=== PATIENT | male | born 1965 | race Caucasian/White ===

== ENCOUNTER 2019-12-14 01:43 | Day surgery (SDC) | payer OTHER, SELFPAY ==
[2019-11-30 09:29] VITALS: BMI 33.0
[2019-12-14] VITALS (7 sets, daily range): BP systolic 98–139; BP diastolic 55–84; PULSE 64–90; RESP 14–26; TEMP 36.3; O2SAT 96–100
--- NOTE | ~2019-12-14 | XR_ITS ---
EXAMINATION: XR abdomen/kub 1V INDICATION: Nephrolithiasis TECHNIQUE: Supine views of the abdomen were obtained on 2 radiographs. COMPARISON: 10/24/2019 FINDINGS: A subtle 4 mm calcification is seen in the lower pole of the right kidney projecting at the level of the right L3 transverse process. No stones are identified along the expected courses of the ureters or within the bladder. The bowel gas pattern is normal. Cholecystectomy clips are noted. IMPRESSION: 1. Right nephrolithiasis. Reviewed, dictated and finalized at location A. ORY PROFESSOR IMPRESSION: 1. Right nephrolithiasis.
--- NOTE | 2019-12-14 07:06 | WPDHPUPDATE1 ---
History and Physical Update Update Date/Time: 12/14/19 07:06 History and Physical has been reviewed, including an updated exam of the patient. There are NO changes in the patient's condition. Risks, benefits, and alternatives have been discussed and questions answered. Patient agrees to proceed with procedure.
[2019-12-14] MEDS: LACTATED RINGERS 1,000 ML 30 ML IV CONT ×2 (07:10→10:05)
--- NOTE | 2019-12-14 08:23 | WPDANESEPPF ---
Anes - Initial Pre Proc Eval Procedure: Operation Date: 12/14/19 08:30 Proposed Procedures p Cystoscopy, Right Renal Extracorporeal Shock Wave Lithotripsy - Kiran Cadena MD Date/Time: 12/14/19 08:23 Surgeon: Kiran Cadena MD Pre Op Diagnosis: Bilateral Kidney Stones,Hematuria Patient Data Age: 54 Gender: M Height: 5 ft 10 in Weight: 106.1 kg Last Vital Signs Temp 97.4 F L 12/14/19 07:25 Pulse 69 12/14/19 07:25 Resp 16 12/14/19 07:25 BP 139/84 12/14/19 07:25 Pulse Ox 97 12/14/19 07:25 Allergies Allergy/AdvReac Type Severity Reaction Status Date / Time gluten Allergy Mild N/V/D Verified 12/14/19 07:04 wheat Allergy Mild n/v/d Verified 12/14/19 07:04 Home Medications Medication Instructions Recorded Confirmed Type finasteride 5 mg PO DAILY 11/30/19 12/14/19 History nebivolol [Bystolic] 5 mg PO DAILY 11/30/19 12/14/19 History pantoprazole 40 mg PO DAILY 11/30/19 12/14/19 History Patient hx anesthesia problems: none Family hx anesthesia problems: none [facility] Past Medical History Medical History (Updated 10/17/19 @ 00:00 by Rody Anaya) Celiac disease GERD (gastroesophageal reflux disease) H/O: HTN (hypertension) History of Hill's esophagus History of kidney stones Hx of epididymitis Hypercholesteremia Surgical History Surgical History (Updated 10/16/19 @ 15:42 by Arturo Mathis) History of cholecystectomy Social History Social History (Updated 12/14/19 @ 08:23 by Justice Francois MD) Smoking packs per day: 1.5 Smoking cigarettes per day: 30.0 Years smoked: 40 Smoking pack-years: 60.00 Smoking status: Current every day smoker Alcohol intake: current Gender identity (if verbalized by the patient): Male Anes - Eval Final PreProcedure Day of Procedure 12/14/19 08:23 Patient weight: obese Heart: regular rate and rhythm Lungs: clear to auscultation Airway: Mallampati scale class II Neurological: alert and oriented Last oral intake: >/= 8 hours ASA classification: III Emergent: no Anesthetic plan: proceed Anesthesia type and monitoring: general LMA and standard monitoring Informed Consent: The patient's anesthetic plan and its attendant risks and benefits were discussed with the patient/family/POA. Questions were solicited and answers provided to the satisfaction of the patient/family/POA.
[2019-12-14] MEDS: ceFAZolin 2 GM/D5W 50 ML 2 GM/50 ML BAG IVPB (08:32)
--- NOTE | 2019-12-14 09:12 | PM.PROC ---
Procedure Note - Detailed Date of procedure: 12/14/19 Pre-op diagnosis: Bilateral Kidney Stones,Hematuria Post-op diagnosis: same Procedure performed: 1. Right ESWL 2. Flexible cystoscopy. Description of procedure: The patient was brought to the operative suite where he was placed in the supine position on the Dornier lithotripter table. Flexible cystoscopy was undertaken with a 16F flexible cystoscopy. There were no urethral strictures. The prostatic uretehral estimated length was 1.5cm. There was mild obstruction of the prostatic urethra with no median lobe enlargement. The bladder mucosa was normal and there was a single, orthotopic ureteral orifice bilaterally. The patient was then repositioned in the supine position and the focal point of the lithotriptor was placed at a 5mm right lower calyceall calculus. A total of 2500 shocks were delivered at a power setting of 7. There appeared to be good fragmentation of the stone. The patient tolerated the procedure well and was taken to the recovery room in good condition. Anesthesia: GLMA Surgeon: Kiran Cadena MD Estimated blood loss (mL): 0 Drains: No Packing: No Pathology: none sent Complications: No immediate complications Condition: stable Disposition: PACU
--- NOTE | 2019-12-14 10:55 | SUR.PHASEII ---
ATTEMPTED AGAIN BUT UNABLE TO VOID. DRINKING LOTS OF FLUIDS.
== END 2019-12-14 10:50 | disposition home or self-care (01) ==
PROVIDERS: PCP Hospitalist; Visit Provider Urology
PROC: (CPT 50590; principal; 2019-12-14 08:30)
DX: N20.0 Calculus of kidney (principal); I10 Essential (primary) hypertension; E78.00 Pure hypercholesterolemia, unspecified; K90.0 Celiac disease; K21.9 Gastro-esophageal reflux disease without esophagitis; F17.210 Nicotine dependence, cigarettes, uncomplicated; E66.9 Obesity, unspecified; Z68.33 Body mass index [BMI] 33.0-33.9, adult
CPT/HCPCS: 50590; 74018; A9270; J0131; J0690; J1100; J2250; J2405; J2704; J3010; J7030; J7120

== ENCOUNTER 2019-12-31 10:56 | Outpatient (CLI) | payer OTHER, SELFPAY ==
--- NOTE | ~2019-12-31 | XR_ITS ---
XR abdomen/kub 1V 12/31/2019 11:34 Indication: Hematuria Procedure: KUB Comparison: Comparison to multiple prior studies sequentially, with oldest reviewed study dated 09/14. Findings: Bowel gas pattern is nonobstructive. Moderate colonic fecal loading. There are cholecystect amina clips. No acute osseous abnormality. Impression: 1: No acute abdominal abnormality. Reviewed, dictated and finalized at location A. ON KEEPER Impression: 1: No acute abdominal abnormality.
== END 2019-12-31 10:57 | disposition home or self-care (01) ==
LOC: ANHIMG 11:12
PROVIDERS: Visit Provider Nurse Practitioner Adult Health
DX: N20.0 Calculus of kidney (principal); R31.9 Hematuria, unspecified
CPT/HCPCS: 74018

== ENCOUNTER 2021-02-26 15:43 | Outpatient (CLI) | payer OTHER, SELFPAY | END 2021-02-26 15:44 | disposition home or self-care (01) | LOC: ANHCOVIDVC 15:43 | DX: Z23 Encounter for immunization (principal) | CPT/HCPCS: 0001A; 91300 ==

== ENCOUNTER 2021-03-19 15:40 | Outpatient (CLI) | payer OTHER, SELFPAY | END 2021-03-19 15:41 | disposition home or self-care (01) | LOC: ANHCOVIDVC 15:41 | DX: Z23 Encounter for immunization (principal) | CPT/HCPCS: 0002A; 91300 ==

== ENCOUNTER 2022-08-25 16:03 | Outpatient (CLI) | payer OTHER, SELFPAY ==
--- NOTE | ~2022-08-25 | CT_ITS ---
EXAMINATION: CT abdomen pelvis wo con DATE: 08/25/2022 16:22 INDICATION: Bilateral kidney stones. TECHNIQUE: Computed tomography (CT) of the abdomen and pelvis was performed without intravenous contr ast. Automated exposure control and iterative reconstruction technique were employed. The dose-length product was 401.19 mGy-cm. COMPARISON: CT abdomen and pelvis 10/24/2019 FINDINGS: There are portions of the lung bases are clear without pneumonia or pleural effusion. The h eart size is normal. No pericardial effusion. The liver is normal. There are changes of cholecystecto my. The spleen, pancreas, and right adrenal gland are normal. There is a 2.8 cm mass in left adrenal gland measuring low attenuation, consistent with an adenoma. There are 3 stones in right kidney measu ring up to 7 mm. There is a 1 mm stone in left kidney. There are no dilated loops of bowel. The appen dick is normal. There are no pathologically enlarged lymph nodes. There is no free intraperitoneal flu id. There is prominent fat in left inguinal canal that may be a hernia. There is mild thoracolumbar s pondylosis. There is mild chronic anterior wedging of multiple thoracic vertebral bodies. IMPRESSION: 1. Bilateral nonobstructing kidney stones. Reviewed, dictated and finalized at location A.
== END 2022-08-25 16:04 | disposition home or self-care (01) ==
LOC: ANHIMG 16:07
PROVIDERS: PCP Hospitalist; Visit Provider Urology
DX: N20.0 Calculus of kidney (principal); M47.815 Spondylosis without myelopathy or radiculopathy, thoracolumbar region; M48.54XA Collapsed vertebra, not elsewhere classified, thoracic region, initial encounter for fracture
CPT/HCPCS: 74176

== ENCOUNTER 2022-10-06 15:35 | Outpatient (CLI) | payer OTHER, SELFPAY ==
--- NOTE | 2022-10-06 15:30 | ECG_ITS ---
Measurements Intervals [place] Rate: 75 P: 53 MO: 171 QRS: 60 QRSD: 97 T: 34 QT: 377 QTc: 422 Interpretive Statements SINUS RHYTHM DELAYED PRECORDIAL R/S TRANSITION MINIMAL Q WAVES- INFERIOR LEADS BASELINE ARTIFACT- I, II, AVR BORDERLINE ECG COMPARED TO ECG 12/08/2019 14:02:36 NO SIGNIFICANT CHANGES Electronically Signed On 10-07-2022 8:17:58 FUEL CELL TEST ENGINEER by Jovani Tariq D.O.
[2022-10-06 16:14] LABS: Prothrombin Time 13.1 Seconds (11.1-14.7)
== END 2022-10-06 15:36 | disposition home or self-care (01) ==
LOC: ANHSURGERY 15:37
PROVIDERS: PCP Hospitalist; Visit Provider Urology
DX: Z01.812 Encounter for preprocedural laboratory examination (principal); Z01.810 Encounter for preprocedural cardiovascular examination; N20.0 Calculus of kidney; E78.00 Pure hypercholesterolemia, unspecified; Z86.79 Personal history of other diseases of the circulatory system; Z72.0 Tobacco use
CPT/HCPCS: 36415; 85610; 85730; 87086; 93005

== ENCOUNTER 2022-10-15 01:18 | Day surgery (SDC) | payer OTHER, SELFPAY ==
[2022-10-04 16:45] VITALS: BMI 33.0
--- NOTE | 2022-10-04 17:15 | SUR.PREOP ---
Report to the Outpatient Waiting Room, entrance under the green pavilion located off [facility], at time 0630 on date 10/15/2022. Planned Procedure Time: 0830. Time changes happen often and if your time is changed the preop area will call you the afternoon before. - You and your visitor will be asked to self-screen and do not enter if you have any COVID symptoms. - Only one visitor is requested with a max of two and NO children visitors are allowed at this time. - The patient visitor may be requested to leave or wait in car when not with patient due to distancing restrictions. - A mask is optional within the hospital. Patients may have clear liquids (water, carbonated beverages, clear teas, apple juice) until 3 hours prior to surgery with a maximum of 20 ounces. - No food from midnight until time of surgery - Infants may have breast milk until 4 hours before surgery, infant formula 6 hours prior to surgery. - Children will be allowed to drink immediately following surgery. If applicable, please bring a bottle or sippy cup to assist with drinking. Juice, water, soda, and popsicles are readily available. For infants on formula, please bring formula the day of surgery. Pacifiers are allowed. Take the following medications with a SIP of water the morning of surgery: BYSTOLIC Medications to discontinue per physician IBUPROFEN 1 WEEK-PER DR. BALLARD Date to take last dose 10/08/22 Please no make-up, nail persian, hairspray, perfume, deodorant, or body powder the day of surgery. No jewelry (including any body piercings) or valuables the day of surgery, leave them at home. Please take a shower or bath the night before, or the morning of, surgery with an antibacterial soap. Wear comfortable, loose fitting clothing. Children are encouraged to wear pajamas. - Jewelry must be removed prior to entering the operating room. Rings and piercings that are not removed may be cut off. - The hospital will not accept responsibility for valuables. - Please leave all valuables, including medications, at home the day of surgery. If you are going home after surgery, a licensed sprinkling truck driver must drive you home. - NO public transportation without another adult if you receive anesthesia. - We recommend that an adult stay with you for 24 hours following discharge. - We also recommend that you do not drive, make important decision, drink alcoholic beverages, or take any drugs that were not prescribed by your health care provider for at least 24 hours after your discharge time. For Pediatric surgeries, we recommend two adults accompany the child home. Follow any additional instructions given to you from your surgeon. If you or anyone in your household have experienced Covid symptoms in the past week, please notify your surgeon or the nurse liaison at the phone number below for possible testing. Telephone instructions given to YARELIS and asked if any additional questions and then verbalized understanding. Patient advised to call surgeon office or pre surgery nurse liaison [phone] if any additional questions.
--- NOTE | 2022-10-05 07:34 | P.HP_ITS ---
History of Present Illness History of Present Illness Consent: Risks, benefits, and alternatives have been discussed and questions answered. Patient agrees to proceed with procedure. Chief complaint: Tam Kidney Stones Narrative: Ruben Kennedy is a 57 year old male we have seen for years with BPH. On her last visit he complained of an atypical right flank pain and, somewhat surprisingly, the renal CT KUB shows several stones in his right kidney measuring up to 7 mm. After discussion of options he elected for right ESWL. He is aware of the risk including, but not limited to, residual fragments that were a require additional intervention, postoperative hematuria and perinephric hematoma Review of Systems Cardiovascular: Cardiovascular: Denies chest pain, Denies lightheadedness, Denies palpitations and Denies dyspnea Respiratory: Respiratory: Denies dyspnea Gastrointestinal: Gastrointestinal: Denies diarrhea, Denies nausea and Denies vomiting Genitourinary: Genitourinary: Denies hematuria and Denies dysuria Endocrine: Endocrine: Denies palpitations PMFSH Past Medical History Medical History (Updated 10/05/22 @ 07:35 by Kiran Cadena MD) Celiac disease GERD (gastroesophageal reflux disease) H/O: HTN (hypertension) History of Hill's esophagus History of kidney stones Hx of epididymitis Hypercholesteremia Surgical History Surgical History (Updated 10/16/19 @ 15:42 by Arturo Mathis) History of cholecystectomy Social History Social History (Updated 12/14/19 @ 08:23 by Justice Francois MD) Smoking packs per day: 1 Smoking cigarettes per day: 20.0 Years smoked: 40 Smoking pack-years: 40.00 Smoking status: Current every day smoker Tobacco type: cigarettes Alcohol intake: current Alcohol use details: Very rare- a couple every few months Living arrangements: with family Gender identity (if verbalized by the patient): Male Spiritual care concerns: No Meds Home Medications and Allergies Home Medications Medication Instructions Recorded Confirmed Type finasteride 5 mg tablet 5 mg PO DAILY 11/30/19 10/04/22 History nebivolol 5 mg tablet (Bystolic) 5 mg PO DAILY 11/30/19 10/04/22 History pantoprazole 40 mg tablet,delayed 40 mg PO DAILY 11/30/19 10/04/22 History release acetaminophen 500 mg tablet 500 mg PO Q6H PRN Pain 10/04/22 10/04/22 History (Tylenol Extra Strength) ibuprofen 100 mg tablet 200 mg PO Q6H PRN Pain 10/04/22 10/04/22 History rosuvastatin 5 mg tablet 5 mg PO DAILY 10/04/22 10/04/22 History Allergies Allergy/AdvReac Type Severity Reaction Status Date / Time gluten Allergy Mild N/V/D Verified 10/04/22 16:40 wheat Allergy Mild n/v/d Verified 10/04/22 16:40 Exam Const: General: no acute distress Resp: Effort & Inspection: normal respiratory effort GI: Inspection: non-distended GI Palp: No abdominal tenderness and No Guarding due to palpation present (GI) Auscultation: normal bowel sounds Assessment and Plan Assessment and plan (1) Bilateral kidney stones: Code(s): N20.0 - Calculus of kidney Status: Acute Assessment and Plan: * Right ESWL
[2022-10-15] VITALS (8 sets, daily range): BP systolic 106–149; BP diastolic 55–72; PULSE 59–69; RESP 16–20; TEMP 36.2; O2SAT 97–100
--- NOTE | ~2022-10-15 | XR_ITS ---
EXAMINATION: XR abdomen/kub 1V INDICATION: Urolithiasis TECHNIQUE: Supine views of the abdomen were obtained on three radiographs. COMPARISON: 08/25/2022 FINDINGS: There is a 5 mm stone of the right kidney lower pole. Bowel contents project over the kidne ys limiting sensitivity for renal stones. No stones are identified along the expected courses of the ureters or at the urinary bladder. Prostatic calcifications are noted. The bowel gas pattern is chito l. The visualized lung bases are clear. Cholecystectomy clips are noted in the right upper quadrant. IMPRESSION: 1. Right nephrolithiasis. Reviewed, dictated and finalized at location A. RT FEEDER GROUND BONE IMPRESSION: 1. Right nephrolithiasis.
--- NOTE | 2022-10-15 06:44 | WPDHPUPDATE1 ---
History and Physical Update Update Date/Time: 10/15/22 06:44 History and Physical has been reviewed, including an updated exam of the patient. There are NO changes in the patient's condition. Risks, benefits, and alternatives have been discussed and questions answered. Patient agrees to proceed with procedure.
--- NOTE | 2022-10-15 07:39 | WPDANESEPPF ---
Anes - Initial Pre Proc Eval Procedure: Operation Date: 10/15/22 08:30 Proposed Procedures p Right Extracorporeal Shock Wave Lithotripsy - Kiran Cadena MD Date/Time: 10/15/22 07:39 Surgeon: Kiran Cadena MD Pre Op Diagnosis: Tam Kidney Stones Patient Data Age: 57 Gender: M Height: 1.78 m Weight: 104.5 kg Allergies Allergy/AdvReac Type Severity Reaction Status Date / Time gluten Allergy Mild N/V/D Verified 10/04/22 16:40 wheat Allergy Mild n/v/d Verified 10/04/22 16:40 Home Medications Medication Instructions Recorded Confirmed Type finasteride 5 mg tablet 5 mg PO DAILY 11/30/19 10/04/22 History nebivolol 5 mg tablet (Bystolic) 5 mg PO DAILY 11/30/19 10/04/22 History pantoprazole 40 mg tablet,delayed 40 mg PO DAILY 11/30/19 10/04/22 History release acetaminophen 500 mg tablet 500 mg PO Q6H PRN Pain 10/04/22 10/04/22 History (Tylenol Extra Strength) ibuprofen 100 mg tablet 200 mg PO Q6H PRN Pain 10/04/22 10/04/22 History rosuvastatin 5 mg tablet 5 mg PO DAILY 10/04/22 10/04/22 History Patient hx anesthesia problems: none Family hx anesthesia problems: none Results Review: All pre-operative results and documents have been reviewed as part of the pre-operative evaluation. [facility] Past Medical History Medical History Celiac disease GERD (gastroesophageal reflux disease) H/O: HTN (hypertension) History of Hill's esophagus History of kidney stones Hx of epididymitis Hypercholesteremia Surgical History Surgical History History of cholecystectomy Social History Social History Smoking packs per day: 1 Smoking cigarettes per day: 20.0 Years smoked: 40 Smoking pack-years: 40.00 Smoking status: Current every day smoker Tobacco type: cigarettes Alcohol intake: current Alcohol use details: Very rare- a couple every few months Living arrangements: with family Gender identity (if verbalized by the patient): Male Spiritual care concerns: No Anes - Eval Final PreProcedure Day of Procedure 10/15/22 07:39 Patient weight: obese Heart: regular rate and rhythm Lungs: decreased breath sounds Airway: Mallampati scale class III Neurological: alert and oriented Last oral intake: >/= 8 hours ASA classification: III Emergent: no Anesthetic plan: proceed Anesthesia type and monitoring: general LMA and standard monitoring Results Review: All pre-operative results and documents have been reviewed as part of the pre-operative evaluation. Informed Consent: The patient's anesthetic plan and its attendant risks and benefits were discussed with the patient/family/POA. Questions were solicited and answers provided to the satisfaction of the patient/family/POA.
[2022-10-15] MEDS: LACTATED RINGERS 1,000 ML 30 ML IV CONT (07:45)
[2022-10-15] MEDS: ceFAZolin 2 GM/D5W 50 ML 2 GM/50 ML BAG IVPB (07:53)
--- NOTE | 2022-10-15 08:34 | W.PM.PROC2 ---
Procedure Note - Detailed Date of Procedure 10/15/22 Pre-op Diagnosis Tam Kidney Stones Post-op Diagnosis Same Procedure Performed Right ESWL Surgeon Kiran Cadnea MD Anesthesia General Description of Procedure The patient was brought to the operative suite where he was placed in the supine position on the Dornier lithotripsy table. The focal point of the lithotripter was placed at a pair of contiguous 5-7mm right renal calculi. A total of 2500 shocks were delivered at a power setting of 4. There appeared to be good fragmentation of the stone. The patient tolerated the procedure well and was taken to the recovery room in good condition. Drains No Packing No Pathology None sent Complications No immediate complications Condition Stable
== END 2022-10-15 10:25 | disposition home or self-care (01) ==
PROVIDERS: PCP Hospitalist; Visit Provider Urology
PROC: (CPT 50590; principal; 2022-10-15 08:30)
DX: N20.0 Calculus of kidney (principal); K90.0 Celiac disease; I10 Essential (primary) hypertension; E78.00 Pure hypercholesterolemia, unspecified; F17.210 Nicotine dependence, cigarettes, uncomplicated; E66.9 Obesity, unspecified; Z68.33 Body mass index [BMI] 33.0-33.9, adult
CPT/HCPCS: 50590; 36415; 74018; 85610; 85730; 87086; 93005; J0690; J1100; J2250; J2405; J2704; J3010; J7120

== ENCOUNTER 2022-10-25 08:21 | Outpatient (CLI) | payer OTHER, SELFPAY ==
--- NOTE | ~2022-10-25 | XR_ITS ---
EXAM: XR abdomen/kub 1V DATE: 10/25/2022 08:41 HISTORY: N20.0 - Calculus of kidney . COMPARISON: 10/15/2022. FINDINGS: Lung bases are clear. Enlarged liver. Dilated loop of small bowel in the left abdomen. The right lower pole renal calcification is partially obscured. Cholecystectomy clips. Mild degenerative change in the lumbar spine and hips. IMPRESSION: Right nephrolithiasis, likely stable but partially obscured. Small bowel ileus. Obstructi on is not excluded.. Reviewed, dictated and finalized at location K. E SHEARER IMPRESSION: Right nephrolithiasis, likely stable but partially obscured. Small bowel ileus. Obstruction is not excluded..
== END 2022-10-25 08:22 | disposition home or self-care (01) ==
PROVIDERS: PCP Hospitalist; Visit Provider Urology
DX: N20.0 Calculus of kidney (principal)
CPT/HCPCS: 74018

== ENCOUNTER 2023-04-25 08:00 | Outpatient (CLI) | payer OTHER, SELFPAY ==
--- NOTE | ~2023-04-25 | XR_ITS ---
XR abdomen/kub 1V 04/25/2023 08:21 INDICATION: Bilateral renal stones TECHNIQUE: KUB COMPARISON: 10/25/2022 FINDINGS: Bowel gas pattern is normal. There are cholecystectomy clips. There is no evidence of free air, mass, organomegaly, ascites or obstruction. No abnormal calculi are seen. The bones appear int act. IMPRESSION: 1: No acute abdominal abnormality identified. Reviewed, dictated and finalized at location []
== END 2023-04-25 08:01 | disposition home or self-care (01) ==
PROVIDERS: PCP Hospitalist; Visit Provider Urology
DX: N20.0 Calculus of kidney (principal)
CPT/HCPCS: 74018

== ENCOUNTER 2023-11-01 08:28 | Outpatient (CLI) | payer OTHER, SELFPAY ==
--- NOTE | ~2023-11-01 | XR_ITS ---
EXAMINATION: XR abdomen/kub 1V INDICATION: BPH with urinary obstruction TECHNIQUE: Supine views of the abdomen were obtained on 2 radiographs. COMPARISON: 04/25/2023 FINDINGS: There is a 5 mm stone of the right kidney lower pole. The bowel gas pattern is normal. The visualized lung bases are clear. Cholecystectomy clips are noted. IMPRESSION: 1. Right nephrolithiasis. Reviewed, dictated and finalized at location L. EL ENGINE ERECTOR IMPRESSION: 1. Right nephrolithiasis.
== END 2023-11-01 08:29 | disposition home or self-care (01) ==
LOC: ANHIMG 08:33
PROVIDERS: PCP Hospitalist; Visit Provider Urology
DX: N40.1 Benign prostatic hyperplasia with lower urinary tract symptoms (principal); N20.0 Calculus of kidney
CPT/HCPCS: 74018

== ENCOUNTER 2023-11-05 17:02 | Emergency (ER) | payer OTHER, SELFPAY ==
[2023-11-05 17:16] VITALS: BP 154/76; PULSE 84; RESP 16; TEMP 36.8; O2SAT 100
--- NOTE | 2023-11-05 17:32 | ED.URI ---
HPI - URI/Sore Throat General Chief Complaint: Upper Respiratory Infection Stated Complaint: Sinus Time Seen by Provider: 11/05/23 17:32 Source: patient, RN notes reviewed and old records reviewed Mode of arrival: ambulatory Limitations: no limitations History of Present Illness HPI Narrative: 58-year-old male presents to the [facility] with sinus congestion for 1 week. Also reports a cough, denies fevers Concern for flu and COVID Denies any chest pain, shortness of breath Onset (ago): week(s) (1) Related Data Home Medications Medication Instructions Recorded Confirmed finasteride 5 mg tablet 5 mg PO DAILY 11/30/19 10/15/22 nebivolol 5 mg tablet (Bystolic) 5 mg PO DAILY 11/30/19 10/15/22 pantoprazole 40 mg tablet,delayed 40 mg PO DAILY 11/30/19 10/15/22 release ibuprofen 100 mg tablet 200 mg PO Q6H Pain 10/04/22 10/15/22 Allergies Allergy/AdvReac Type Severity Reaction Status Date / Time gluten Allergy Mild N/V/D Verified 11/05/23 17:16 wheat Allergy Mild n/v/d Verified 11/05/23 17:16 Review of Systems Review of Systems: All systems reviewed & are unremarkable except as noted in HPI and below Constitutional: Constitutional: Reports no additional constitutional complaints Eyes: Eyes: Reports no additional eye complaints ENT: Reports as per HPI, Reports nasal congestion and Reports sinus pressure Cardiovascular: Cardiovascular: Reports no additional cardiovascular complaints, Denies chest pain and Denies dyspnea Respiratory: Respiratory: Reports no additional respiratory complaints, Denies chest congestion, Denies cough and Denies dyspnea Gastrointestinal: Gastrointestinal: Reports no additional gastrointestinal complaints, Denies abdominal pain, Denies nausea and Denies vomiting Musculoskeletal: Musculoskeletal: Reports no additional musculoskeletal complaints Integumentary/Breasts: Skin/Breast: Reports system reviewed and no additional complaints, except as docu Neurologic: Reports system reviewed and no additional complaints, except as documented Psychiatric: Psychiatric: Reports no additional psychiatric complaints Allergic/Immunologic: Allergic/Immunologic: Reports no additional allergic/immunologic complaints PMFSH Past Medical History Medical History Celiac disease GERD (gastroesophageal reflux disease) H/O: HTN (hypertension) History of Hill's esophagus History of kidney stones Hx of epididymitis Hypercholesteremia Surgical History Surgical History History of cholecystectomy Social History Social History Smoking packs per day: 1 Smoking cigarettes per day: 20.0 Years smoked: 40 Smoking pack-years: 40.00 Smoking status: Current every day smoker Tobacco type: cigarettes Alcohol intake: current Alcohol use details: Very rare- a couple every few months Living arrangements: with family Gender identity (if verbalized by the patient): Male Spiritual care concerns: No Comments At the time of my signature, I reviewed and agree with the nursing past medical, surgical, social, and family history. There is no relevant family history pertinent to the patient complaint. Exam Const: General: cooperative, healthy appearing, comfortable, no acute distress, well developed, alert and well nourished Nutritional Appearance: well nourished Orientation/consciousness: patient oriented x3 Limitations: no limitations HENMT: Head: normal to inspection Ears: hearing grossly normal bilaterally and external ears normal Face/Nose/Sinus: Normal external nose present, Normal nares present, Normal nasal mucous membranes and turbinates present, normal facial exam and face symmetric Face and sinus: normal facial exam and face symmetric Mouth: Yes Normal oral and palatal mucosa present, Yes lip normal and Yes moist mucous membrane
== END 2023-11-05 17:48 | disposition home or self-care (01) ==
PROVIDERS: Emergency Provider Nurse Practitioner; PCP Hospitalist
DX: U07.1 COVID-19 (principal); F17.210 Nicotine dependence, cigarettes, uncomplicated; K21.9 Gastro-esophageal reflux disease without esophagitis; I10 Essential (primary) hypertension; K22.70 Barrett's esophagus without dysplasia; E78.00 Pure hypercholesterolemia, unspecified
CPT/HCPCS: 87426; 87804; 99213; C9803; G0463

== ENCOUNTER 2024-05-21 06:45 | Outpatient (CLI) | payer OTHER, SELFPAY ==
--- NOTE | ~2024-05-21 | XR_ITS ---
XR abdomen/kub 1V Ordering provider: Kiran Cadena MD History: . BILATERAL KIDNEY STONES F/U . Comparison: November 01, 2023 FINDINGS: BOWEL: Nonobstructive bowel gas pattern. ORGANOMEGALY: None. SIGNIFICANT PATHOLOGIC CALCIFICATIONS: Stone is seen in the right kidney lower pole. OTHER: No free air is seen under the diaphragm. Degenerative changes of the spine. IMPRESSION: NO ACUTE ABDOMINAL FINDINGS. Right kidney stone. Reviewed, dictated and finalized at location A.
== END 2024-05-21 06:46 | disposition home or self-care (01) ==
PROVIDERS: PCP Hospitalist; Visit Provider Urology
DX: N20.0 Calculus of kidney (principal)
CPT/HCPCS: 74018

== ENCOUNTER 2025-03-09 14:05 | Emergency (ER) | payer OTHER, SELFPAY ==
--- NOTE | ~2025-03-09 | XR_ITS ---
XR hand LT min 3V Ordering provider: Edna Stephens APRN History: . finger laceration . Comparison: None. FINDINGS: BONES: No acute fracture or dislocation. JOINT SPACES: Narrowing of the proximal and distal interphalangeal joints. 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 SOFT TISSUES: Unremarkable. IMPRESSION: No acute osseous abnormality left hand. Reviewed, dictated and finalized at location A.
--- OUTSIDE RECORDS SUMMARY | 2025-03-09 14:08 | XMS_ITS | Referral Summary ---
Author Organization [facility] Address [address] [place] [address] Care Team Providers Care Insurance Account Representative Name Role Phone No, Physician Primary Care Provider [phone] Allergies No known active allergies Medications finasteride (PROSCAR) 5 mg tablet TK 1 T PO D 12/23/2019 Active BYSTOLIC 5 mg tablet TK ONE T PO QD. 12/18/[address] (PROTONIX) 40 mg EC tablet TK 1 T PO D 11/18/2019 Active rosuvastatin (CRESTOR) 5 mg tablet TK 1 T PO HS 12/14/2019 Active meloxicam (MOBIC) 15 mg tablet Take 1 tablet (15 mg total) by mouth daily 06/27/2023 Active Active Problems Problem Noted Date Diagnosed Date Essential hypertension 08/26/2023 Hyperlipidemia 08/26/2023 Hill's esophagus without dysplasia 11/24/2022 Overview (08/26/2023): Added automatically from request for surgery [id number] Gastroesophageal reflux disease 11/24/2022 Overview (08/26/2023): Added automatically from request for surgery [id number] Immunizations Immunization Administration Dates Next Due Tdap 10/17/2019 Social History Tobacco Use Types Packs/Day Years Used Date Smoking Tobacco: Every Day Personal Safety Answer Date Recorded Getting School Help Needed Not on file 12/11 Sex and Gender Information Value Date Recorded Sex Assigned at Not on file Legal 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 Gender Identity Not on file Sexual Orientation Not on file Last Filed Vital Signs Vital Sign Reading Time Taken Comments Blood Pressure 122/74 12/31/2019 8:45 AM MIDDLE SCHOOL BAND TEACHER Pulse 53 12/31/2019 8:45 AM MIDDLE SCHOOL BAND TEACHER Temperature 36 C (96.8 F) 12/31/2019 8:45 AM MIDDLE SCHOOL BAND TEACHER Respiratory Rate - - Oxygen Saturation 94% 12/31/2019 8:45 AM MIDDLE SCHOOL BAND TEACHER Inhaled Oxygen Concentration - - Weight 110.6 kg (243 lb 14.4 oz) 08/26/2023 7:56 AM CDT Height 177 cm (5' 9.69 ) 08/26/2023 7:56 AM CDT Body Mass Index 35.31 08/26/2023 7:56 AM CDT Plan of Treatment Not on [place] [address] [facility] CHO[facility]US [facility] H[facility]PPO Address: [facility] [address] [place] [address] [facility]US [facility] H[facility] Address: [address] [place] [address] [place] [address] [facility] CHOICE PLUS [facility] H[facility]O Address: [place] [address] [place] [address] [employer] Care Teams Insurance Account Representative Relationship Specialty Start Date End Date No, Physician PCP - General 12/24/19
--- OUTSIDE RECORDS SUMMARY | 2025-03-09 14:08 | XMS_ITS | Clinical Summary ---
Author Organization [facility] Address [address] [place] [phone] Care Team Providers Care Technical Programs Manager Name Role Phone No, Physician Primary Care Provider [phone] Allergies No known active allergies Medications finasteride [...] (08/26/2023): Added automatically from request for surgery [id number] Gastroesophageal reflux disease 11/24/2022 Overview (08/26/2023): Added automatically from request for surgery [id number] Immunizations Immunization Administration Dates Next Due Tdap 10/17/2019 Surgical History Surgery Date Site/Laterality Comments FOREIGN BODY REMOVAL 01/04/2020 Left removal foreign body left hand (wood) Social History Tobacco Use Types Packs/Day Years Used Date Smoking Tobacco: Every Day Personal Safety Answer Date Recorded Getting School Help Needed Not on file 12/11 Sex and Gender Information Value Date Recorded Sex Assigned at Not on file Legal 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 Gender Identity Not on file Sexual Orientation Not on file Obstetrics History Last Filed Vital Signs Vital Sign Reading Time Taken Comments Blood Pressure 122/74 12/31/2019 8:45 AM ACADEMIC SUPPORT COORDINATOR Pulse 53 12/31/2019 8:45 AM ACADEMIC SUPPORT COORDINATOR Temperature 36 C (96.8 F) 12/31/2019 8:45 AM ACADEMIC SUPPORT COORDINATOR Respiratory Rate - - Oxygen Saturation 94% 12/31/2019 8:45 AM ACADEMIC SUPPORT COORDINATOR Inhaled Oxygen Concentration - - Weight 110.6 kg (243 lb 14.4 oz) 08/26/2023 7:56 AM CDT Height 177 cm (5' 9.69 ) 08/26/2023 7:56 AM CDT Body Mass Index 35.31 08/26/2023 7:56 AM CDT Plan of Treatment Health Maintenance Due Date Last Done Comments Colon Cancer Screening-Colonoscopy 1965 Depression Screening 1965 Hepatitis C Screening 1965 Prostate Cancer Screening-PSA 1965 Hepatitis B Screening 02/23/1982 Regular Well Visit/Exam 18-64 02/23/1982 Pneumococcal vaccine <65 (1 of 2 - PCV) 02/23/1983 Zoster Vaccine (1 of 2) 02/23/2014 Influenza Vaccine (Season Ended) 2025 DTaP/Tdap/Td Vaccine (2 - Td or Tdap) 10/17/202902/[address] [place] [address] [facility] CHOICE PLUS [place] [address] CHOICE PLUS [place] [id number] [place] [address] [employer] Care Teams Technical Programs Manager Relationship Specialty Start Date End Date No, Physician PCP - General 12/24/19
--- OUTSIDE RECORDS SUMMARY | 2025-03-09 14:08 | XMS_ITS | Clinical Summary ---
Author Organization [facility] Address [facility] [place] [address] Care Team Providers Care Skills Instructor Name Role Phone Otilio Rockwell MD Unavailable [phone] Otilio Rockwell MD Primary Care Provider [phone] Allergies No known active allergies Medications Blood Pressure Monitor Kit Take blood pressure daily and report findings to office nures. DX: hypertension 1 kit 07/21/20 21 Active sildenafil (VIAGRA) 100 MG tablet Take 1 tablet (100 mg total) by mouth as needed. 11/10/20 23 Active pantoprazole EC (PROTONIX) 40 MG tabletIndicati ons:Gastroesop hageal reflux disease, unspecified whether esophagitis present Take 1 tablet (40 mg total) by mouth daily. 90 tablet 3 04/18/20 24 025 Active rosuvastatin (CRESTOR) 5 MG tablet Take 1 tablet (5 mg total) by mouth nightly at bedtime. 90 tablet 1 11/05/20 24 Active buPROPion SR (WELLBUTRIN SR) 150 MG 12 hr tablet Take 1 tablet (150 mg total) by mouth daily. 30 tablet 3 12/11/19 25 Active nebivolol (BYSTOLIC) 5 MG tablet TAKE 1 TABLET BY MOUTH DAILY 90 tablet 1 02/21/20 25 Active nebivolol (BYSTOLIC) 5 MG tablet TAKE 1 TABLET(5 MG) BY MOUTH DAILY 90 tablet 1 08/03/20 24 025 Discontinued Active Problems Problem Noted Date Diagnosed Date History of colon polyps 02/16/2023 Overview (02/16/2023): Added automatically from request for surgery [id number] Gastroesophageal reflux dise ase, unspecified whether esophagitis present 11/24/2022 Overview (11/24/2022): Added automatically from request for surgery [id number] Hill's esophagus without dysplasia 11/24/2022 Overview (11/24/2022): Added automatically from request for surgery [id number] Screen for colon cancer 11/24/2022 Overview (11/24/2022): Added automatically from request for surgery [id number] History of Hill's esophagus 07/11/2020 Overview (07/11/2020): Added automatically from request for surgery [id number] Essential hypertension Hyperlipidemia Encounters Date Type Department Care Team Description 01/17/2025 8:35 AM CUSTOMER SUCCESS ASSOCIATE - 01/17/2025 11:59 PM CUSTOMER SUCCESS ASSOCIATE [place] [address] Otilio Rockwell MD Discharge Disposition: Home or Self Care (Routine Discharge) 01/17/2025 Telephone [facility] [address] [address] Shilpa Clement, SUPERVISOR [employer] Results 01/17/2025 Travel 12/11/2024 9:00 AM CUSTOMER SUCCESS ASSOCIATE Office Visit [facility] [address] [address] Otilio Rockwell MD Hypertension; Lipids 12/10/2024 3:22 PM CUSTOMER SUCCESS ASSOCIATE - 12/10/2024 11:59 PM CUSTOMER SUCCESS ASSOCIATE [place] [address] Otilio Rockwell MD Discharge Disposition: Home or Self Care (Routine Discharge) 12/10/2024 Travel 12/10/2024 Telephone [facility] [address] [place] [address] Otilio Rockwell MD Lab Order from Last 3 Months Immunizations Immunization Administration Dates Next Due Tdap (Boostrix) 10/17/2019 Family History Medical History Relation Comments Hypertension Father Hypertension Mother No family history of premature coronary artery d isease. Other Relation Status Comments Father Mother Other Social History Tobacco Use Types Packs/Day Years Used Date Smoking Tobacco: Every Day Cigarettes Smokeless Tobacco: Never Tobacco Cessation:Ready to Q uit: Not Asked; Counseling Given: Not Answered Comments:MD to advise Alcohol Use Standard Drinks/Week Comments Yes 0 (1 standard drink = 0.6 oz pur e alcohol) little PHQ-2 Answer Date Recorded Patient Health Questionnaire-2 Score 0 04/18/2024 Sex and Gender Information Value Date Recorded Sex Assigned at Male 12/08/2024 9:49 AM CUSTOMER SUCCESS ASSOCIATE Legal Sex Male 12:14 AM CDT Gender Identity Not on file Sexual Orientation Not on file 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 on file Not on file Last Filed Vital Signs Vital Sign Reading Time Taken Comments Blood Pressure 120/70 12/11/2024 8:53 AM CUSTOMER SUCCESS ASSOCIATE Pulse 73 12/11/2024 8:53 AM CUSTOMER SUCCESS ASSOCIATE Temperature 36.9 C (98.5 F) 04/18/2024 12:58 PM CDT Respiratory Rate 18 04/18/2024 12:58 PM CDT Oxygen Saturation 94% 04/18/2024 12:58 PM CDT Inhaled Oxygen Concentration - - Weight 108.9 kg (240 lb) 12/11/2024 8:53 AM CUSTOMER SUCCESS ASSOCIATE Height 177.8 cm (5' 10 ) 12/11/2024 8:53 AM CUSTOMER SUCCESS ASSOCIATE Body Mass Index 34.44 12/11/2024 8:53 AM CUSTOMER SUCCESS ASSOCIATE Plan of Treatment Upcoming Encounters Date Type Department Care Team (Late st Contact Info) Description 12/17/2025 9:00 AM CUSTOMER SUCCESS ASSOCIATE Office Visit [facility], [address] [address] Otilio Rockwell MD [facility]. [address] [address] Health Maintenance Due Date Last Done Comments EGD-Hill's Surveillance 1965 Annual Physical 02/23/1967 Hepatitis C 02/23/1982 Pneumococcal Vaccine: 50+ Years (1 of 2 - PCV) 02/23/1983 Zoster Vaccines (1 of 2) 02/23/2014 COVID-19 Vaccine (3 - 2023-2 5 season) 2024 03/19/2021, 02/26/2021 PHQ-2 (Physician Newell) 11/14/2024 04/18/2024 DTaP, Tdap and Td Vaccines ( 2 - Td or Tdap) 10/17/2029 10/17/2019 Colorectal Cancer Screening Colonoscopy (10 Years) 07/14/2033 07/14/2023 RSV Immunization or 60+ Years (1 - 1-dose 75+ series) 02/23/2039 Meningococcal B Vaccine Aged Out No l onger eligible based on patient's age to complete this topic Meningococcal Vaccine Aged Out No meaghan nicole eligible based on patient's age to complete this topic RSV Immunizations Under 20 Months Aged Out No longer eligible b ased on patient's age to complete this topic Procedures Procedure Name Priority Date/Time Associated Diagnosis Comments CBC, AUTO, NO DIFF Routine 01/17/2025 8: 52 AM CUSTOMER SUCCESS ASSOCIATE Leukocytosis, unspecified type CBC, AUTO, NO DIFF Routine 12/10/2024 3: 26 PM CUSTOMER SUCCESS ASSOCIATE Dyslipidemia COMPREHENSIVE METABOLIC PANEL Routine 12/10/2024 3:26 PM CUSTOMER SUCCESS ASSOCIATE Dyslipidemia CK (CPK) Routine 12/10/2024 3:26 PM CUSTOMER SUCCESS ASSOCIATE Dyslipidemia LIPID PANEL Routine 12/10/2024 3:26 PM CUSTOMER SUCCESS ASSOCIATE Dyslipidemia from Last 3 Months Results * (ABNORMAL) CBC, AUTO, NO DIFF (01/17/2025 8:52 AM CUSTOMER SUCCESS ASSOCIATE) Only the most recent of2 resultswithin the time period is included. WBC 13.29(H) 4.5 - 11.0 x10'3/uL 01/17/2025 9:13 AM [facility] RBC 5.79 4.70 - 6.10 x10'6/uL 01/17/2025 9:13 AM [facility] HGB 17.3 14.0 - 18.0 G/DL 01/17/2025 9:13 AM [facility] HCT 51.8 43.0 - 54.0 % 01/17/2025 9:13 AM [facility] MCV 89.5 80.0 - 94.0 FL 01/17/2025 9:13 AM [facility] MCH 29.9 27.0 - 31.0 PG 01/17/2025 9:13 AM [facility] MCHC 33.4 32.0 - 36.0 G/DL 01/17/2025 9:13 AM [facility] RDW 12.9 11.5 - 14.5 % 01/17/2025 9:13 AM [facility] PLT 312 130 - 400 x10'3/uL 01/17/2025 9:13 AM [facility] MPV 9.5 9.3 - 12.2 FL 01/17/2025 9:13 AM [facility] 01/17/2025 8:52 AM CUSTOMER SUCCESS ASSOCIATE us Otilio Rockwell MD LABORATORY Final Resul t [facility] [address] [place] [address], * COMPREHENSIVE METABOLIC PANEL (12/10/2024 3:26 PM CUSTOMER SUCCESS ASSOCIATE) [facility] GLUCOSE 81 70 - 99 MG/DL 12/10/2024 4:01 PM [facility] BUN 11 7 - 18 MG/DL 12/10/2024 4:01 PM [facility] CREATININE S/P/B 0.85 0.7 - 1.3 MG/DL 12/10/2024 4:01 PM [facility] SODIUM S/P/B 138 136 - 145 MMOL/L 12/10/2024 4:01 PM [facility] POTASSIUM S/P/B 4.0 3.5 - 5.1 MMOL/L 12/10/2024 4:01 PM [facility] CHLORIDE S/P/B 106 97 - 115 MMOL/L 12/10/2024 4:01 PM [facility] CO2 27.1 21 - 32 MMOL/L 12/10/2024 4:01 PM [facility] CALCIUM S/P/B 9.8 8.5 - 10.1 MG/DL 12/10/2024 4:01 PM [facility] BILIRUBIN TOTAL S/P/B 0.7 0.2 - 1.2 MG/DL 12/10/2024 4:01 PM [facility] Comment: THIS ASSAY IS NOT RECOMMENDED FOR PATIENTS UNDERGOING TREATMENT WITH ELTROMBOPAG DUE TO THE POTENTIAL FOR FALSELY ELEVATED RESULTS. TOTAL PROTEIN S/P/B 7.6 6.4 - 8.2 G/DL 12/10/2024 4:01 PM [facility] ALBUMIN S/P/B 4.0 3.4 - 5.0 G/DL 12/10/2024 4:01 PM [facility] AST 28 15 - 37 U/L 12/10/2024 4:01 PM [facility] ALT 34 16 - 60 U/L 12/10/2024 4:01 PM [facility] ALKALINE PHOSPHATASE S/P/B 85 50 - 136 U/L 12/10/2024 4:01 PM [facility] ANION GAP 4.9 2 - 10 MMOL/L 12/10/2024 4:01 PM [facility] BUN CREATININE RATIO 12.9 6 - 26 12/10/2024 4:01 PM [facility] A/G RATIO 1.1 1.0 - 2.0 RATIO 12/10/2024 4:01 PM [facility] GFR ESTIMATE >90 >90 ML/MIN/1.7 3 M2 12/10/2024 4:01 PM [facility] Comment: NOTE: eGFR is not calculated for patients <18 years of age or gender unknown. This is an estimated GFR calculation using the new CKD EPI creatinine equation without race and so does not require a correction factor for race. This estimated GFR should not be used for calculating drug doses. 12/10/2024 3:26 PM CUSTOMER SUCCESS ASSOCIATE us Otilio Rockwell MD LABORATORY Final Resul t [facility] [address] [place] [address], [place] [phone] * (ABNORMAL) LIPID PANEL (12/10/2024 3:26 PM CUSTOMER SUCCESS ASSOCIATE) CHOLESTEROL 159 <200 MG/DL 12/10/2024 4:01 PM [facility] TRIGLYCERIDES 192(H) <150 MG/DL 12/10/2024 4:01 PM [facility] HDL 38(L) >40.0 MG/DL 12/10/2024 4:01 PM [facility] LDL (CALCULATED) 83 <100 MG/DL 12/10/2024 4:01 PM [facility] NON HDL CHOLESTEROL 121 <130 MG/DL 12/10/2024 4:01 PM [facility] CHOL/HDL RATIO 4.2 0.0 - 4.5 12/10/2024 4:01 PM [facility] VLDL CALCULATION 38 5 - 55 MG/DL 12/10/2024 4:01 PM [facility] LIPID INTERPRETATION 12/10/2024 4:01 PM [facility] Comment: [facility] REPORT RECOMMENDATIONS: ADULT CHILD LOW RISK: CHOLESTEROL <200 <170 TRIGLYCERIDE <150 --- HDL >=60 --- LDL <100 <110 BORDERLINE: CHOLESTEROL 200-239 170-199 TRIGLYCERIDE 150-199 --- HDL 40-59 --- LDL 100-159 110-129 HIGH RISK: CHOLESTEROL >=240 >=200 TRIGLYCERIDE >=200 --- HDL <40 --- LDL >=160 >=130 12/10/2024 3:26 PM CUSTOMER SUCCESS ASSOCIATE Otilio Rockwell MD LABORATORY Final Resul t Performing Organization Address [facility]/ZIP Co de Phone Number [facility] [address] [place] [address], [place] [phone] * (ABNORMAL) CK (CPK) (12/10/2024 3:26 PM CUSTOMER SUCCESS ASSOCIATE) CPK 360(H) 35 - 232 U/L 12/10/2024 4:01 PM CUSTOMER SUCCESS ASSOCIATE [facility] 12/10/2024 3:26 PM CUSTOMER SUCCESS ASSOCIATE Otilio Rockwell MD LABORATORY Final Resul t Performing Organization Address [facility] Co de Phone Number [facility] [address] [place] [address], [place] [phone] from Last [address] [place] [address] [facility] [facility] [place] [address] Care Teams Skills Instructor Relationship Specialty Start Date End Date Otilio Rockwell MD [facility]. [address] [place] [address] PCP - General CARDIOVASCULAR DISEASE 12/08/24 Otilio Rockwell MD [facility]. [address] [place] [address] Crossing Guard CARDIOVASCULAR DISEASE 04/14/16
--- OUTSIDE RECORDS SUMMARY | 2025-03-09 14:08 | XMS_ITS | Encounter Summary ---
Author Organization [facility] Address [address] [place] [address] Care Team Providers Care Waiter/Waitress Third Class Name Role Phone Otilio Rockwell MD Unavailable [phone] Morro Reyes MD Primary Care Provider [phone] None, Provider Primary Care Provider Unavaila ble Otilio Rockwell MD Primary Care Provider [phone] Encounter Details Date Type Department Care Team (Late st Contact Info) Description 12/31/2019 Abstract [facility] [address] [place] [address] Manny Diaz MA Social History Tobacco Use Types Packs/Day Years Used Date Smoking Tobacco: Every Day Cigarettes Smokeless Tobacco: Never Alcohol Use Standard Drinks/Week Comments Yes 0 (1 standard drink = 0.6 oz pur e alcohol) little Sex and Gender Information Value Date Recorded Sex Assigned at Male 12/08/2024 9:49 AM HEALTH ADVOCATE Legal Sex Male 12:14 AM CDT Gender Identity Not on file Sexual Orientation Not on file 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 [address] [place], [place] [address] documented as of this encounter Procedures Procedure Name Priority Date/Time Associated Diagnosis Comments BASIC METABOLIC PANEL Routine 12/31/2019 documented in this encounter Results * (ABNORMAL) BASIC METABOLIC PANEL (12/31/2019) SODIUM S/P/B 134 135 - 45 POTASSIUM S/P/B 4.2 3.3 - 5.1 CO2 23 22 - 32 CHLORIDE S/P/B 100 96 - 108 BUN 15 8 - 25 CREATININE S/P/B 0.6(A) 0.7 - 1.3 EGFR NON-AFR. AMER. >90 <=90 12/31/2019 us Doc [facility] LABORATORY Final Result documented in this encounter Visit Diagnoses Not on filedocumented in this encounter Care Teams Waiter/Waitress Third Class Relationship Specialty Start Date End Date Morro Reyes MD [address] [facility] [address] [place] [address] PCP - General FAMILY PRACTICE 05/23/19 07/14/20 None, MD Tania PCP - General 07/03/21 12/07/24 Otilio Rockwell MD [address] [place], [place] [address] PCP - General CARDIOVASCULAR DISEASE 12/08/24 Otilio Rockwell MD [address] [place], [place] [address] [employer] CARDIOVASCULAR DISEASE 04/14/16 documented as of this encounter
[2025-03-09 14:13] VITALS: BP 175/85; PULSE 74; RESP 16; TEMP 36.9; O2SAT 97
--- NOTE | 2025-03-09 14:16 | ED.WOUNDLAC ---
HPI - Wound/Laceration General Chief Complaint: Wound/Laceration <Edna Stephens APRN - Last Filed: 03/09/25 14:19> Stated Complaint: finger laceration <Edna Stephens APRN - Last Filed: 03/09/25 14:19> Time Seen by Provider: 03/09/25 14:15 <Edna Stephens APRN - Last Filed: 03/09/25 14:19> Focused HPI: Patient is a 60-year-old male who presents to the ER with a laceration to the 2nd digit on his left hand. He reports that he smashed his finger in a grill lid. Patient endorses full range of motion in the joint. He has a pressure dressing on his finger at the time of examination which is controlling his bleeding. Patient endorses a history of high blood pressure and GERD. Unsure when his last tetanus shot was, so he is in agreement receiving one today. GENERAL: Well-appearing, well-nourished, and in no acute distress. HEAD: Normocephalic, atraumatic. CHEST: Clear to auscultation. ?No respiratory distress. HEART: Regular rate and rhythm.? NEURO: ?Alert and oriented x3. Patient screened in triage and initial orders placed.? ?Additional care and disposition to be based upon?diagnostic testing and treatment. <Edna Stephens APRN - Last Filed: 03/09/25 14:19> History of Present Illness HPI narrative: Agree with the HPI above. Patient is not sure about his tetanus status. <Damaso Small MD - Last Filed: 03/09/25 16:21> Related Data Home Medications: Home Medications ?Medication ?Instructions ?Recorded ?Confirmed ?Last Taken ?Type finasteride 5 mg tablet 5 mg PO DAILY 11/30/19 10/15/22 10/04/22 History nebivolol 5 mg tablet (Bystolic) 5 mg PO DAILY 11/30/19 10/15/22 10/04/22 History pantoprazole 40 mg tablet,delayed 40 mg PO DAILY 11/30/19 10/15/22 10/04/22 History release ibuprofen 100 mg tablet 200 mg PO Q6H Pain 10/04/22 10/15/22 10/03/22 20:00 History <Edna Stephens APRN - Last Filed: 03/09/25 14:19> Allergies/Adverse Reactions: Allergies Allergy/AdvReac Type Severity Reaction Status Date / Time gluten Allergy Mild N/V/D Verified 11/05/23 17:16 wheat Allergy Mild n/v/d Verified 11/05/23 17:16 <Edna Stephens APRN - Last Filed: 03/09/25 14:19> Review of Systems Review of Systems: As reviewed above <Damaso Small MD - Last Filed: 03/09/25 16:21> PMFSH Past Medical History Medical History: Medical History History of kidney stones Hx of epididymitis History of Hill's esophagus GERD (gastroesophageal reflux disease) Celiac disease Hypercholesteremia H/O: HTN (hypertension) <Edna Stephens APRN - Last Filed: 03/09/25 14:19> Surgical History Surgical History: Surgical History History of cholecystectomy <Edna Stephens APRN - Last Filed: 03/09/25 14:19> Social History Social History: Social History Smoking packs per day: 1 Smoking cigarettes per day: 20.0 Years smoked: 40 Smoking pack-years: 40.00 Smoking status: Current every day smoker Tobacco type: cigarettes Alcohol intake: current Alcohol use details: Very rare- a couple every few months Living arrangements: with family Gender identity (if verbalized by the patient): Male Spiritual care concerns: No <Edna Stephens APRN - Last Filed: 03/09/25 14:19> Exam Narrative: GENERAL: [Well-appearing, well-nourished, and in no acute distress.] HEAD: [Normocephalic, atraumatic.] EYES: [PERRLA and EOMI.] ENT: Nares clear, no rhinorrhea or epistaxis. Mucous membranes moist. NECK: Supple. CHEST: [Clear to auscultation. No respiratory distress.] HEART: [Regular rate and rhythm]. No murmur heard. [Normal peripheral pulses.] ABDOMEN: [Soft, nondistended], [nontender], [No rigidity or guarding] EXTREMITIES: Normal range of motion. [No edema.] Flexion and extension intact at the MCP PIP and the IP joint of all digits on the left hand. There is a small 1.5 cm linear laceration is very superficial involving the dorsal lateral aspect of the left index finger distally. No joint involvement. No exposed musculature. No bleeding. SKIN: Warm, dry, no rash. NEURO: [No focal deficits]. Alert and oriented [x3.] PSYCH: [Normal mood and affect.] <Damaso Small MD - Last Filed: 03/09/25 16:21> Course Vital Signs Vital signs: Vital Signs Temperature 36.9 C 03/09/25 14:13 Pulse Rate 74 03/09/25 14:13 Respiratory Rate 16 03/09/25 14:13 Blood Pressure 175/85 H 03/09/25 14:13 Pulse Oximetry 97 03/09/25 14:13 Oxygen Delivery Room Air 03/09/25 14:13 Temperature 36.9 C 03/09/25 14:13 Pulse Rate 74 03/09/25 14:13 Respiratory Rate 16 03/09/25 14:13 Blood Pressure 175/85 H 03/09/25 14:13 Pulse Oximetry 97 03/09/25 14:13 Oxygen Delivery Room Air 03/09/25 14:13 <Edna Stephens APRN - Last Filed: 03/09/25 14:19> Vital Signs Temperature 36.9 C 03/09/25 14:13 Pulse Rate 74 03/09/25 14:13 Respiratory Rate 16 03/09/25 14:13 Blood Pressure 175/85 H 03/09/25 14:13 Pulse Oximetry 97 03/09/25 14:13 Oxygen Delivery Room Air 03/09/25 14:13 Temperature 36.9 C 03/09/25 14:13 Pulse Rate 74 03/09/25 14:13 Respiratory Rate 16 03/09/25 14:13 Blood Pressure 175/85 H 03/09/25 14:13 Pulse Oximetry 97 03/09/25 14:13 Oxygen Delivery Room Air 03/09/25 14:13 <Damaso Small MD - Last Filed: 03/09/25 16:21> Procedures Laceration Laceration 1: Date: 03/09/25 <Damaso Small MD - Last Filed: 03/09/25 16:21> Time: 16:21 <Damaso Small MD - Last Filed: 03/09/25 16:21> Site: hand <Damaso Small MD - Last Filed: 03/09/25 16:21> Side (If applicable): left <Damaso Small MD - Last Filed: 03/09/25 16:21> Size (cm): 1.5 <Damaso Small MD - Last Filed: 03/09/25 16:21> Description: linear <Damaso Small MD - Last Filed: 03/09/25 16:21> Depth: simple, single layer <Damaso Small MD - Last Filed: 03/09/25 16:21> Local Anesthetic: none <Damaso Small MD - Last Filed: 03/09/25 16:21> Pre-repair: wound explored, irrigated extensively and deep structures intact <Damaso Small MD - Last Filed: 03/09/25 16:21> ====== Skin Level ======: Skin layer closed with: dermabond and steri strips <Damaso Small MD - Last Filed: 03/09/25 16:21> Technique: simple, interrupted <Damaso Small MD - Last Filed: 03/09/25 16:21> ====== Subcutaneous Layer ======: ====== Muscle Layer ======: ====== Tendon Layer ======: Dressing: Non adherent dressing applied. <Damaso Small MD - Last Filed: 03/09/25 16:21> MDM - Wound/Laceration MDM Narrative Medical decision making narrative: 60-year-old male presenting with laceration to the left 2nd digit. Bleeding controlled. Tetanus will be updated here in the emergency department. Full flexion and extension at each joint line, no bleeding. Very superficial wound does not need complex repair. Irrigation and cleaning solutions were used to thoroughly explored the wound, Steri-Strips and surgical glue were used to close the wound and non adherent dressing applied over top. Patient was given wound care instructions and return precautions and he was safe for discharge home. <Damaso Small MD - Last Filed: 03/09/25 16:21> Discharge Plan Discharge Clinical Impression: Finger laceration <Edna Stephens APRN - Last Filed: 03/09/25 14:19> Patient Disposition: Home <Edna Stephens APRN - Last Filed: 03/09/25 14:19> Condition: Stable <Edna Stephens APRN - Last Filed: 03/09/25 14:19> Instructions: Antibiotic Form, Laceration (ED), Skin Adhesive Care (ED), Skin Adhesive Strips (ED) <Edna Stephens APRN - Last Filed: 03/09/25 14:19> Additional Instructions: Your x-ray shows no broken bones. We have applied surgical glue to close your wound. This will fall off naturally in the next 3-5 days. Keep the area dry for the next 24 hours and covered for protection. Return with any new or worsening concerns or signs of infection. Take Tylenol and ibuprofen for any aches or pains. <Edna Stephens APRN - Last Filed: 03/09/25 14:19> Patient Language: Surinamese <Edna Stephens APRN - Last Filed: 03/09/25 14:19> Prescriptions: No Action pantoprazole 40 mg tablet,delayed release (DR/EC) 40 mg PO DAILY finasteride 5 mg tablet 5 mg PO DAILY nebivolol [Bystolic] 5 mg tablet 5 mg PO DAILY ibuprofen 100 mg Tablet 200 mg PO Q6H <Edna Stephens APRN - Last Filed: 03/09/25 14:19> Follow-up/Referrals: Moiz,Otilio Rojas MD [Primary Care Provider] - <Edna Stephens APRN - Last Filed: 03/09/25 14:19> Time of Disposition: 16:19 <Edna Stephens APRN - Last Filed: 03/09/25 14:19> 16:19 <Damaso Small MD - Last Filed: 03/09/25 16:21>
[2025-03-09] MEDS: TETANUS,DIPHTHERIA,AC PERTUSSIS ADULT (0.5 ML) BOOSTRIX IM (16:38)
--- OUTSIDE RECORDS SUMMARY | 2025-03-09 16:43 | XMS_ITS | Clinical Summary ---
Author Organization [facility] Address [facility] [place] [address] Care Team Providers Care Space Control Supervisor Name Role Phone Otilio Rockwell MD Unavailable [phone] Otilio Rockwell MD Primary Care Provider [phone] Allergies No known active allergies Medications Blood [...] (02/16/2023): Added automatically from request for surgery [id number] Gastroesophageal reflux dise ase, unspecified whether esophagitis present 11/24/2022 Overview (11/24/2022): Added automatically from request for surgery [id number] Hill's esophagus without dysplasia 11/24/2022 Overview (11/24/2022): Added automatically from request for surgery [id number] Screen for colon cancer 11/24/2022 Overview (11/24/2022): Added automatically from request for surgery [id number] History of Hill's esophagus 07/11/2020 Overview (07/11/2020): Added automatically from request for surgery [id number] Essential hypertension Hyperlipidemia Encounters Date Type Department Care Team Description 01/17/2025 8:35 AM WATER METER READER - 01/17/2025 11:59 PM WATER METER READ[place] [address] Otilio Rockwell MD Discharge Disposition: Home or Self Care (Routine Discharge) 01/17/2025 Telephone [facility] [address] [address] Shilpa Clement, EXAMINING OFFICER Results 01/17/2025 Travel 12/11/2024 9:00 AM WATER METER READER Office Visit [facility] [address] [address] Otilio Rockwell MD Hypertension; Lipids 12/10/2024 3:22 PM WATER METER READER - 12/10/2024 11:59 PM WATER METER READER [place] [address] Otilio Rockwell MD Discharge Disposition: Home or Self Care (Routine Discharge) 12/10/2024 Travel 12/10/2024 Telephone [facility] [address] [place] [address] Otilio Rockwell MD Lab Order from Last [...] Sex Assigned at Male 12/08/2024 9:49 AM WATER METER READER Legal Sex Male 12:14 AM CDT Gender Identity Not on file Sexual Orientation Not on file 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 on file Not on file Last Filed Vital Signs Vital Sign Reading Time Taken Comments Blood Pressure 120/70 12/11/2024 8:53 AM WATER METER READER Pulse 73 12/11/2024 8:53 AM WATER METER READER Temperature 36.9 C (98.5 F) 04/18/2024 12:58 PM CDT Respiratory Rate 18 04/18/2024 12:58 PM CDT Oxygen Saturation 94% 04/18/2024 12:58 PM CDT Inhaled Oxygen Concentration - - Weight 108.9 kg (240 lb) 12/11/2024 8:53 AM WATER METER READER Height 177.8 cm (5' 10 ) 12/11/2024 8:53 AM WATER METER READER Body Mass Index 34.44 12/11/2024 8:53 AM WATER METER READER Plan of Treatment Upcoming Encounters Date Type Department Care Team (Late st Contact Info) Description 12/17/2025 9:00 AM WATER METER READER [facility] Visit [facility], [address] [address] Otilio Rockwell MD [facility]. [address] [address] Health Maintenance Due Date Last Done Comments EGD-Hill's Surveillance 1965 Annual Physical 02/23/1967 Hepatitis C 02/23/1982 Pneumococcal Vaccine: 50+ Years (1 of 2 - PCV) 02/23/1983 Zoster Vaccines (1 of 2) 02/23/2014 COVID-19 Vaccine (3 - 2023-2 5 season) 2024 03/19/2021, 02/26/2021 PHQ-2 (Physician [place]) 11/14/2024 04/18/2024 DTaP, Tdap and Td Vaccines [...] NO DIFF Routine 01/17/2025 8: 52 AM WATER METER READER Leukocytosis, unspecified type CBC, AUTO, NO DIFF Routine 12/10/2024 3: 26 PM WATER METER READER Dyslipidemia COMPREHENSIVE METABOLIC PANEL Routine 12/10/2024 3:26 PM WATER METER READER Dyslipidemia CK (CPK) Routine 12/10/2024 3:26 PM WATER METER READER Dyslipidemia LIPID PANEL Routine 12/10/2024 3:26 PM WATER METER READER Dyslipidemia from Last 3 Months Results * (ABNORMAL) CBC, AUTO, NO DIFF (01/17/2025 8:52 AM WATER METER READER) Only the most recent of2 resultswithin the time period is included. WBC 13.29(H) 4.5 - 11.0 x10'3/uL 01/17/2025 9:13 AM [facility] RBC 5.79 4.70 - 6.10 x10'6/uL 01/17/2025 9:13 AM [facility] HGB 17.3 14.0 - 18.0 G/DL 01/17/2025 9:13 AM [facility] HCT 51.8 43.0 - 54.0 % 01/17/2025 9:13 AM [facility] MCV 89.5 80.0 - 94.0 FL 01/17/2025 9:13 AM [facility] MCH 29.9 27.0 - 31.0 PG 01/17/2025 9:13 AM [facility] MCHC 33.4 32.0 - 36.0 G/DL 01/17/2025 9:13 AM [facility] RDW 12.9 11.5 - 14.5 % 01/17/2025 9:13 AM [facility] PLT 312 130 - 400 x10'3/uL 01/17/2025 9:13 AM [facility] MPV 9.5 9.3 - 12.2 FL 01/17/2025 9:13 AM [facility] 01/17/2025 8:52 AM WATER METER READER us Otilio Rockwell MD LABORATORY Final Resul t [facility] [address] [place] [address], * COMPREHENSIVE METABOLIC PANEL (12/10/2024 3:26 PM WATER METER READER) [facility] GLUCOSE 81 70 - 99 MG/DL 12/10/2024 4:01 PM [facility] BUN 11 7 - 18 MG/DL 12/10/2024 4:01 PM [facility] CREATININE S/P/B 0.85 0.7 - 1.3 MG/DL 12/10/2024 4:01 PM [facility] SODIUM S/P/B 138 136 - 145 MMOL/L 12/10/2024 4:01 PM [facility] POTASSIUM S/P/B 4.0 3.5 - 5.1 MMOL/L 12/10/2024 4:01 PM [facility] CHLORIDE S/P/B 106 97 - 115 MMOL/L 12/10/2024 4:01 PM [facility] CO2 27.1 21 - 32 MMOL/L 12/10/2024 4:01 PM [facility] CALCIUM S/P/B 9.8 8.5 - 10.1 MG/DL 12/10/2024 4:01 PM [facility] BILIRUBIN TOTAL S/P/B 0.7 0.2 - 1.2 MG/DL 12/10/2024 4:01 PM [facility] Comment: THIS ASSAY IS NOT RECOMMENDED FOR PATIENTS UNDERGOING TREATMENT WITH ELTROMBOPAG DUE TO THE POTENTIAL FOR FALSELY ELEVATED RESULTS. TOTAL PROTEIN S/P/B 7.6 6.4 - 8.2 G/DL 12/10/2024 4:01 PM [facility] ALBUMIN S/P/B 4.0 3.4 - 5.0 G/DL 12/10/2024 4:01 PM [facility] AST 28 15 - 37 U/L 12/10/2024 4:01 PM [facility] ALT 34 16 - 60 U/L 12/10/2024 4:01 PM [facility] ALKALINE PHOSPHATASE S/P/B 85 50 - 136 U/L 12/10/2024 4:01 PM [facility] ANION GAP 4.9 2 - 10 MMOL/L 12/10/2024 4:01 PM [facility] BUN CREATININE RATIO 12.9 6 - 26 12/10/2024 4:01 PM [facility] A/G RATIO 1.1 1.0 - 2.0 RATIO 12/10/2024 4:01 PM [facility] GFR ESTIMATE >90 >90 ML/MIN/1.7 3 M2 12/10/2024 4:01 PM [facility] Comment: NOTE: eGFR is not calculated for patients <18 years of age or gender unknown. This is an estimated GFR calculation using the new CKD EPI creatinine equation without race and so does not require a correction factor for race. This estimated GFR should not be used for calculating drug doses. 12/10/2024 3:26 PM WATER METER READER us Otilio Rockwell MD LABORATORY Final Resul t [facility] [address] [place] [address], [place] [phone] * (ABNORMAL) LIPID PANEL (12/10/2024 3:26 PM WATER METER READER) CHOLESTEROL 159 <200 MG/DL 12/10/2024 4:01 PM [facility] TRIGLYCERIDES 192(H) <150 MG/DL 12/10/2024 4:01 PM [facility] HDL 38(L) >40.0 MG/DL 12/10/2024 4:01 PM [facility] LDL (CALCULATED) 83 <100 MG/DL 12/10/2024 4:01 PM [facility] NON HDL CHOLESTEROL 121 <130 MG/DL 12/10/2024 4:01 PM [facility] CHOL/HDL RATIO 4.2 0.0 - 4.5 12/10/2024 4:01 PM [facility] VLDL CALCULATION 38 5 - 55 MG/DL 12/10/2024 4:01 PM [facility] LIPID INTERPRETATION 12/10/2024 4:01 PM [facility] Comment: NIH CONCENSUS REPORT RECOMMENDATIONS: ADULT CHILD LOW RISK: CHOLESTEROL <200 <170 TRIGLYCERIDE <150 --- HDL >=60 --- LDL <100 <110 BORDERLINE: CHOLESTEROL 200-239 170-199 TRIGLYCERIDE 150-199 --- HDL 40-59 --- LDL 100-159 110-129 HIGH RISK: CHOLESTEROL >=240 >=200 TRIGLYCERIDE >=200 --- HDL <40 --- LDL >=160 >=130 12/10/2024 3:26 PM WATER METER READER Otilio Rockwell MD LABORATORY Final Resul t Performing Organization Address City/[facility]/ZIP Co de Phone Number [facility] [address] [place] [address], [place] [phone] * (ABNORMAL) CK (CPK) (12/10/2024 3:26 PM WATER METER READER) CPK 360(H) 35 - 232 U/L 12/10/2024 4:01 PM WATER METER READER [facility] 12/10/2024 3:26 PM WATER METER READER Otilio Rockwell MD LABORATORY Final Resul t Performing Organization Address City/[facility] Co de Phone Number [facility] [address] [place] [address], [place] [phone] from Last [address] [place] [address] [place] [address] Care Teams Space Control Supervisor Relationship Specialty Start Date End Date Otilio Rockwell MD [facility]. [address] [place] [address] PCP - General CARDIOVASCULAR DISEASE 12/08/24 Otilio Rockwell MD [facility]. [address] [place] [address] Bloomery Electrical Installer CARDIOVASCULAR DISEASE 04/14/16
--- OUTSIDE RECORDS SUMMARY | 2025-03-09 16:43 | XMS_ITS | Referral Summary ---
Author Organization [facility] Address [address] [place] [phone] Care Team Providers Care Coffee Sommelier Name Role Phone No, Physician Primary Care Provider [phone] Allergies No known active allergies Medications finasteride [...] (08/26/2023): Added automatically from request for surgery [id number] Gastroesophageal reflux disease 11/24/2022 Overview (08/26/2023): Added automatically from request for surgery [id number] Immunizations Immunization Administration Dates Next Due Tdap 10/17/2019 Social History Tobacco Use Types Packs/Day Years Used Date Smoking Tobacco: Every Day Personal Safety Answer Date Recorded Getting School Help Needed Not on file 12/11 Sex and Gender Information Value Date Recorded Sex Assigned at Not on file Legal Sex Male 1:53 AM CRAYON PAINTER Gender Identity Not on file Sexual Orientation Not on file Last Filed Vital Signs Vital Sign Reading Time Taken Comments Blood Pressure 122/74 12/31/2019 8:45 AM CRAYON PAINTER Pulse 53 12/31/2019 8:45 AM CRAYON PAINTER Temperature 36 C (96.8 F) 12/31/2019 8:45 AM CRAYON PAINTER Respiratory Rate - - Oxygen Saturation 94% 12/31/2019 8:45 AM CRAYON PAINTER Inhaled Oxygen Concentration - - Weight 110.6 kg (243 lb 14.4 oz) 08/26/2023 7:56 AM CDT Height 177 cm (5' 9.69 ) 08/26/2023 7:56 AM CDT Body Mass Index 35.31 08/26/2023 7:56 AM CDT Plan of Treatment Not on [place] [address] [facility] CHOICE PLUS [facility] H[facility]/PPO Address: [facility] [address] [place] [address] [facility] CHOICE PLUS [facility] HMO/PPO Address: [address] [place] [address] [place] [address] [facility] CHOICE PLUS [facility] H[facility]/PPO Address: [place] [address] [place] [address] [employer] Care Teams Coffee Sommelier Relationship Specialty Start Date End Date No, Physician PCP - General 12/24/19
--- OUTSIDE RECORDS SUMMARY | 2025-03-09 16:43 | XMS_ITS | Encounter Summary ---
Author Organization [facility] Address [address] [place] [address] Care Team Providers Care Water Chaser Name Role Phone Otilio Rockwell MD Unavailable [phone] Morro Reyes MD Primary Care Provider [phone] None, Provider Primary Care Provider Unavaila ble Otilio Rockwell MD Primary Care Provider [phone] Encounter Details Date Type Department Care Team (Late st Contact Info) Description 12/31/2019 Abstract [facility] [address] [place] [address] Manny Diaz MA Social History Tobacco Use Types Packs/Day Years Used Date Smoking Tobacco: Every Day Cigarettes Smokeless Tobacco: Never Alcohol Use Standard Drinks/Week Comments Yes 0 (1 standard drink = 0.6 oz pur e alcohol) little Sex and Gender Information Value Date Recorded Sex Assigned at Male 12/08/2024 9:49 AM CLAM DIGGER Legal Sex Male 12:14 AM CDT Gender Identity Not on file Sexual Orientation Not on file 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 [address] [place], [place] [address] documented as of this encounter Procedures Procedure [...] on filedocumented in this encounter Care Teams Water Chaser Relationship Specialty Start Date End Date Morro Reyes MD [address] [facility] [address] [place] [address] PCP - General FAMILY PRACTICE 05/23/19 07/14/20 None, MD Tania PCP - General 07/03/21 12/07/24 Otilio Rockwell MD [address] [place], [place] [address] PCP - General CARDIOVASCULAR DISEASE 12/08/24 Otilio Rockwell MD [address] [place], [place] [address] Lei Complex Manager CARDIOVASCULAR DISEASE 04/14/16 documented as of this encounter
--- OUTSIDE RECORDS SUMMARY | 2025-03-09 16:43 | XMS_ITS | Clinical Summary ---
Author Organization [facility] Address [address] [place] [phone] Care Team Providers Care Destination Sign Repairer Name Role Phone No, Physician Primary Care Provider [phone] Allergies No known active allergies Medications finasteride [...] (08/26/2023): Added automatically from request for surgery [id number] Gastroesophageal reflux disease 11/24/2022 Overview (08/26/2023): Added automatically from request for surgery [id number] Immunizations Immunization Administration Dates Next Due Tdap [...] on file Legal Sex Male 1:53 AM NUCLEAR OPERATIONS SPECIALIST Gender Identity Not on file Sexual Orientation Not on file Obstetrics History Last Filed Vital Signs Vital Sign Reading Time Taken Comments Blood Pressure 122/74 12/31/2019 8:45 AM NUCLEAR OPERATIONS SPECIALIST Pulse 53 12/31/2019 8:45 AM NUCLEAR OPERATIONS SPECIALIST Temperature 36 C (96.8 F) 12/31/2019 8:45 AM NUCLEAR OPERATIONS SPECIALIST Respiratory Rate - - Oxygen Saturation 94% 12/31/2019 8:45 AM NUCLEAR OPERATIONS SPECIALIST Inhaled Oxygen Concentration - - Weight 110.6 [...] - Td or Tdap) 10/17/202902/[address] [place] [address] [facility] CHOICE PLUS [facility] HMO/PPO Address: [address] [address] [place] [address] [facility] H[facility]/PPO Address: [address] [address] [place] [address] CHOICE PLUS [facility] HMO/PPO Address: [address] [address] [place] [id number] [place] [address] [employer] Care Teams Destination Sign Repairer Relationship Specialty Start Date End Date No, Physician PCP - General 12/24/19
== END 2025-03-09 16:59 | disposition home or self-care (01) ==
LOC: ANHED 16:41
PROVIDERS: Emergency Provider Student in an Organized Health Care Education/Training Program; PCP Hospitalist
DX: S61.211A Laceration without foreign body of left index finger without damage to nail, initial encounter (principal); Z23 Encounter for immunization; I10 Essential (primary) hypertension; E78.00 Pure hypercholesterolemia, unspecified; K22.70 Barrett's esophagus without dysplasia; K90.0 Celiac disease; K21.9 Gastro-esophageal reflux disease without esophagitis; F17.210 Nicotine dependence, cigarettes, uncomplicated; Z87.442 Personal history of urinary calculi; Z90.49 Acquired absence of other specified parts of digestive tract; W23.0XXA Caught, crushed, jammed, or pinched between moving objects, initial encounter
CPT/HCPCS: 12001; 73130; 90471; 90715; 99283

== ENCOUNTER 2025-04-27 10:50 | Outpatient (CLI) | payer OTHER, SELFPAY ==
--- NOTE | ~2025-04-27 | XR_ITS ---
[id number] 04/27/2025 11:13 Indication: Radiculopathy Procedure: 3 view cervical spine Comparison: No prior studies for comparison. Findings: Straightening of cervical lordosis. There is disc narrowing at C5-6 and C6-7. There is dege nerative anterolisthesis at C4-5. There is multilevel uncinate and facet hypertrophy of the mid cervi stefani spine. No prevertebral soft tissue abnormality. Odontoid process is normal. Lateral masses normal ly aligned. Lung apices are unremarkable. Impression: 1: Moderate cervical spondylosis. Reviewed, dictated and finalized at location B. Impression: 1: Moderate cervical spondylosis.
--- OUTSIDE RECORDS SUMMARY | 2025-04-27 10:53 | XMS_ITS | Clinical Summary ---
Author Organization [facility] Address [address] [place] [address] Care Team Providers Care Head Of Quality Name Role Phone No, Physician Primary Care Provider [phone] Allergies No known active allergies Medications finasteride [...] (08/26/2023): Added automatically from request for surgery [id number] Gastroesophageal reflux disease 11/24/2022 Overview (08/26/2023): Added automatically from request for surgery [id number] Immunizations Immunization Administration Dates Next Due Tdap [...] on file Legal Sex Male 1:53 AM TOBACCO STRIPPING MACHINE OPERATOR Gender Identity Not on file Sexual Orientation Not on file Obstetrics History Last Filed Vital Signs Vital Sign Reading Time Taken Comments Blood Pressure 122/74 12/31/2019 8:45 AM TOBACCO STRIPPING MACHINE OPERATOR Pulse 53 12/31/2019 8:45 AM TOBACCO STRIPPING MACHINE OPERATOR Temperature 36 C (96.8 F) 12/31/2019 8:45 AM TOBACCO STRIPPING MACHINE OPERATOR Respiratory Rate - - Oxygen Saturation 94% 12/31/2019 8:45 AM TOBACCO STRIPPING MACHINE OPERATOR Inhaled Oxygen Concentration - - Weight 110.6 kg (243 lb 14.4 oz) 08/26/2023 7:56 AM CDT Height 177 cm (5' 9.69) 08/26/2023 7:56 AM CDT Body Mass Index [...] - Td or Tdap) 10/17/202902/[address] [place] [address] [facility] CHOICE PLUS [facility] HMO/PPO Address: [address] [address] [place] [address] [facility] HMO/PPO Address: [address] [address] [place] [address] CHOICE PLUS [facility] HMO/PPO Address: [address] [address] [place] [id number] [place] [address] [employer] Care Teams Head Of Quality Relationship Specialty Start Date End Date No, Physician PCP - General 12/24/19
--- OUTSIDE RECORDS SUMMARY | 2025-04-27 10:53 | XMS_ITS | Referral Summary ---
Author Organization [facility] Address [address] [place] [id number] Care Team Providers Care Piano Stringer Name Role Phone No, Physician Primary Care Provider [phone] Allergies No known active allergies Medications finasteride [...] (08/26/2023): Added automatically from request for surgery [id number] Gastroesophageal reflux disease 11/24/2022 Overview (08/26/2023): Added automatically from request for surgery [id number] Immunizations Immunization Administration Dates Next Due Tdap 10/17/2019 Social History Tobacco Use Types Packs/Day Years Used Date Smoking Tobacco: Every Day Personal Safety Answer Date Recorded Getting School Help Needed Not on file 12/11 Sex and Gender Information Value Date Recorded Sex Assigned at Not on file Legal Sex Male 1:53 AM TOUR CONSULTANT Gender Identity Not on file Sexual Orientation Not on file Last Filed Vital Signs Vital Sign Reading Time Taken Comments Blood Pressure 122/74 12/31/2019 8:45 AM TOUR CONSULTANT Pulse 53 12/31/2019 8:45 AM TOUR CONSULTANT Temperature 36 C (96.8 F) 12/31/2019 8:45 AM TOUR CONSULTANT Respiratory Rate - - Oxygen Saturation 94% 12/31/2019 8:45 AM TOUR CONSULTANT Inhaled Oxygen Concentration - - Weight 110.6 kg (243 lb 14.4 oz) 08/26/2023 7:56 AM CDT Height 177 cm (5' 9.69) 08/26/2023 7:56 AM CDT Body Mass Index 35.31 08/26/2023 7:56 AM CDT Plan of Treatment Not on [place] [address] [facility] CHOICE PLUS [facility] [place] [address] [facility] [address] [employer] Care Teams Piano Stringer Relationship Specialty Start Date End Date No, Physician PCP - General 12/24/19
[2025-04-27 11:41] LABS: Basophils Absolute Auto 0.1 K/mm3 (0.0-0.1); Basophils Percent Auto 0.7 % (0.2-1.2); Eosinophils Absolute Auto 0.2 K/mm3 (0-0.3); Eosinophils Percent Auto 1.2 % (0-4.4); Hematocrit 52.3 % (42.0-52.0); Hemoglobin 17.3 g/dL (14.0-18.0); Immature Granulocyte Absolute 0.04 K/mm3 (0.00-0.031); Immature Granulocyte Percent A 0.3 % (0-0.5); Lymphocytes Absolute Auto 3.24 K/mm3 (0.9-3.2); Mean Corpuscular HGB Conc 33.1 g/dl (32-36); Mean Corpuscular Hemoglobin 30.2 pg (26-34); Mean Corpuscular Volume 91.4 fl (80-100); Mean Platelet Volume 8.9 fl (7.4-10.4); Monocytes Absolute Auto 0.8 K/mm3 (0.1-0.6); Monocytes Percent Auto 6.9 % (2.6-8.5); Neutrophils Absolute Auto 7.7 K/mm3 (1.3-6.7); Neutrophils Percent Auto 63.9 % (45.5-73.1); Platelet Count Result 299 k/mm3 (150-375); Red Blood Count 5.72 M/mm3 (4.6-6.20); Red Cell Distribution Width 13.2 % (11.5-14.5)
[2025-04-27 11:52] LABS: Alanine Aminotransferase 31 U/L (6-50); Albumin Level 4.4 g/dL (3.5-5.1); Alkaline Phosphatase 68 U/L (38-126); Anion Gap 9 mmol/L (4-12); Aspartate Amino Transferase 38 U/L (17-59); Bilirubin,Total 0.8 mg/dL (0.2-1.3); Blood Urea Nitrogen 13 mg/dL (9-20); Calcium 9.6 mg/dL (8.4-10.2); Carbon Dioxide 24 mmol/L (22-30); Chloride 106 mmol/L (98-107); Creatine Kinase 350 U/L (55-170); Estimated Glomerular Filt Rate > 60; Glucose 110 mg/dL (65-110); Magnesium 2.2 mg/dL (1.6-2.3); Potassium 4.2 mmol/L (3.4-5.0); Sodium 139 mmol/L (137-145); Total Protein 7.5 g/dL (6.3-8.2)
[2025-04-27 12:14] LABS: Vitamin D 25 Hydroxy 27.3 ng/mL
[2025-04-27 12:22] LABS: Thyroid Stimulating Hormone 0.513 uIU/mL (0.465-4.680)
== END 2025-04-27 10:51 | disposition home or self-care (01) ==
PROVIDERS: PCP Emergency Medicine; Visit Provider Emergency Medicine
DX: M43.02 Spondylolysis, cervical region (principal); E78.5 Hyperlipidemia, unspecified; I10 Essential (primary) hypertension; E55.9 Vitamin D deficiency, unspecified; E61.2 Magnesium deficiency; R53.83 Other fatigue; E88.09 Other disorders of plasma-protein metabolism, not elsewhere classified
CPT/HCPCS: 36415; 72040; 80053; 82306; 82550; 83735; 84443; 85025

== ENCOUNTER 2025-05-23 06:43 | Outpatient (CLI) | payer OTHER, SELFPAY ==
--- OUTSIDE RECORDS SUMMARY | 2025-05-23 06:46 | XMS_ITS | Patient Health Record ---
Author Organization [facility] Address [address] [facility] [address] [place] [address] Care Team Providers Care Bell Tier Name Role Phone Alvaro Martinez Unavailable [phone] Reason For Referral No Information Plan Of Treatment No Information
--- OUTSIDE RECORDS SUMMARY | 2025-05-23 06:46 | XMS_ITS | Clinical Summary ---
Author Organization [facility] Address [address] [place] [phone] Care Team Providers Care Java Application Engineer Name Role Phone No, Physician Primary Care Provider [phone] Allergies No known active allergies Medications finasteride [...] (08/26/2023): Added automatically from request for surgery [id number] Gastroesophageal reflux disease 11/24/2022 Overview (08/26/2023): Added automatically from request for surgery [id number] Immunizations Immunization Administration Dates Next Due Tdap [...] on file Legal Sex Male 1:53 AM TILE SETTER SUPERVISOR Gender Identity Not on file Sexual Orientation Not on file Obstetrics History Last Filed Vital Signs Vital Sign Reading Time Taken Comments Blood Pressure 122/74 12/31/2019 8:45 AM TILE SETTER SUPERVISOR Pulse 53 12/31/2019 8:45 AM TILE SETTER SUPERVISOR Temperature 36 C (96.8 F) 12/31/2019 8:45 AM TILE SETTER SUPERVISOR Respiratory Rate - - Oxygen Saturation 94% 12/31/2019 8:45 AM TILE SETTER SUPERVISOR Inhaled Oxygen Concentration - - Weight 110.6 [...] Vaccine (1 of 2) 02/23/2014 Influenza Vaccine (#1) 2025 DTaP/Tdap/Td Vaccine (2 - Td or Tdap) 10/17/202902/[address] [place] [address] [facility] CHOICE PLUS [facility] H[facility]/PPO Address: [address] [address] [place] [address] [facility] HMO/PPO Address: [address] [address] [place] [address] CHOICE PLUS [facility] H[facility]/PPO Address: [address] [address] [place] [phone] * Guarantor: Ruben Kennedy Account Type Relation to Patient Date of Phone Billing Address Workers Comp Self [address] [place] [address] [place] [address] [employer] Care Teams Java Application Engineer Relationship Specialty Start Date End Date No, Physician PCP - General 12/24/19
--- OUTSIDE RECORDS SUMMARY | 2025-05-23 06:46 | XMS_ITS | Referral Summary ---
Author Organization [facility] Address [address] [place] [address] Care Team Providers Care Aluminizer Name Role Phone No, Physician Primary Care Provider Allergies No known active allergies Medications finasteride [...] (08/26/2023): Added automatically from request for surgery [id number] Gastroesophageal reflux disease 11/24/2022 Overview (08/26/2023): Added automatically from request for surgery [id number] Immunizations Immunization Administration Dates Next Due Tdap 10/17/2019 Social History Tobacco Use Types Packs/Day Years Used Date Smoking Tobacco: Every Day Personal Safety Answer Date Recorded Getting School Help Needed Not on file 12/11 Sex and Gender Information Value Date Recorded Sex Assigned at Not on file Legal Sex Male 1:53 AM METER TESTER POLYPHASE Gender Identity Not on file Sexual Orientation Not on file Last Filed Vital Signs Vital Sign Reading Time Taken Comments Blood Pressure 122/74 12/31/2019 8:45 AM METER TESTER POLYPHASE Pulse 53 12/31/2019 8:45 AM METER TESTER POLYPHASE Temperature 36 C (96.8 F) 12/31/2019 8:45 AM METER TESTER POLYPHASE Respiratory Rate - - Oxygen Saturation 94% 12/31/2019 8:45 AM METER TESTER POLYPHASE Inhaled Oxygen Concentration - - Weight 110.6 kg (243 lb 14.4 oz) 08/26/2023 7:56 AM CDT Height 177 cm (5' 9.69) 08/26/2023 7:56 AM CDT Body Mass Index 35.31 08/26/2023 7:56 AM CDT Plan of Treatment Not [place] [address] [facility] CHOICE PLUS [facility] [place] [address] [facility] [place] [address] [employer] Care Teams Aluminizer Relationship Specialty Start Date End Date No, Physician PCP - General 12/24/19
--- OUTSIDE RECORDS SUMMARY | 2025-05-23 06:46 | XMS_ITS | Encounter Summary ---
Author Organization [facility] Address [address] [place] [address] Care Team Providers Care Welt Edge Rounder Name Role Phone Otilio Rockwell MD Unavailable [phone] Morro Reyes MD Primary Care Provider [phone] None, Provider Primary Care Provider Unavaila ble Otilio Rockwell MD Primary Care Provider [phone] Encounter Details Date Type Department Care Team (Late st Contact Info) Description 12/31/2019 Abstract [facility], [facility] [address] [place] [address] Manny Diaz MA Social History Tobacco Use Types Packs/Day Years Used Date Smoking Tobacco: Every Day Cigarettes Smokeless Tobacco: Never Alcohol Use Standard Drinks/Week Comments Yes 0 (1 standard drink = 0.6 oz pur e alcohol) little Sex and Gender Information Value Date Recorded Sex Assigned at Male 12/08/2024 9:49 AM RECEIVING OPERATOR Legal Sex Male 12:14 AM CDT Gender Identity Not on file Sexual Orientation Not on file 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 [facility] [address] [place], [place] [id number] documented as of this encounter Procedures Procedure [...] on filedocumented in this encounter Care Teams Welt Edge Rounder Relationship Specialty Start Date End Date Morro Reyes MD [address] [facility] [address] [place] [address] PCP - General FAMILY PRACTICE 05/23/19 07/14/20 None, MD Tania PCP - General 07/03/21 12/07/24 Otilio Rockwell MD [address] [place] [address] [place], [place] [address] PCP - General CARDIOVASCULAR DISEASE 12/08/24 Otilio Rockwell MD [address] [place] [address] [place], [place] [address] Lei Napkin Machine Operator CARDIOVASCULAR DISEASE 04/14/16 documented as of this encounter
--- OUTSIDE RECORDS SUMMARY | 2025-05-23 06:46 | XMS_ITS | Clinical Summary ---
Author Organization [facility] Address [address] [place] [address] Care Team Providers Care Monitoring Analyst Name Role Phone Otilio Rockwell MD Unavailable [phone] Otilio Rockwell MD Primary Care Provider [phone] Allergies No known active allergies Medications Blood Pressure Monitor Kit Take blood pressure daily and report findings to office nures. DX: hypertension 1 kit 1 Active sildenafil (VIAGRA) 100 MG tablet Take 1 tablet (100 mg total) by mouth as needed. 3 Active rosuvastatin (CRESTOR) 5 MG tablet Take 1 tablet (5 mg total) by mouth nightly at bedtime. 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 11/24/2022 Overview (11/24/2022): Added automatically from request for surgery [id number] Screen for colon cancer 11/24/2022 Overview (11/24/2022): Added automatically from request for surgery [id number] History of Hill's esophagus 07/11/2020 Overview (07/11/2020): Added automatically from request for surgery [id number] Essential hypertension Hyperlipidemia Encounters Date Type Department Care Team Description 04/10/2025 Telephone [facility], [address] [address] Otilio Rockwell MD Refill Request ([email or web address]) 04/04/2025 8:12 AM CDT - 04/04/2025 11:59 PM CDT Hospital Encounter [facility] [place] [address] Otilio Rockwell MD Baugher, Dana A, [place] Discharge Disposition: Home or Self Care (Routine Discharge) 04/04/2025 Travel 03/09/2025 Scan [facility], [address] [address] Scanned, Doc Pccl from Last 3 Months Immunizations Immunization Administration [...] Sex Assigned at Male 12/08/2024 9:49 AM ACTUARIAL SCIENCE PROFESSOR Legal Sex Male 12:14 AM CDT Gender Identity Not on file Sexual Orientation Not on file 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 on file Not on file Last Filed Vital Signs Vital Sign Reading Time Taken Comments Blood Pressure 120/70 12/11/2024 8:53 AM ACTUARIAL SCIENCE PROFESSOR Pulse 73 12/11/2024 8:53 AM ACTUARIAL SCIENCE PROFESSOR Temperature 36.9 C (98.5 F) 04/18/2024 12:58 PM CDT Respiratory Rate 18 04/18/2024 12:58 PM CDT Oxygen Saturation 94% 04/18/2024 12:58 PM CDT Inhaled Oxygen Concentration - - Weight 108.9 kg (240 lb) 12/11/2024 8:53 AM ACTUARIAL SCIENCE PROFESSOR Height 177.8 cm (5' 10) 12/11/2024 8:53 AM ACTUARIAL SCIENCE PROFESSOR Body Mass Index 34.44 12/11/2024 8:53 AM ACTUARIAL SCIENCE PROFESSOR Plan of Treatment Upcoming Encounters Date Type Department Care Team (Late st Contact Info) Description 12/17/2025 9:00 AM ACTUARIAL SCIENCE PROFESSOR Office Visit [facility], [address] [id number] Otilio Rockwell MD [facility]. [address] [id number] Health Maintenance Due Date Last Done Comments EGD-Hill's Surveillance 1965 Annual Physical 02/23/1967 Hepatitis C 02/23/1982 Pneumococcal Vaccine: 50+ Years (1 of 2 - PCV) 02/23/1983 Zoster Vaccines (1 of 2) 02/23/2014 COVID-19 Vaccine (3 - 2023-2 5 season) 2024 03/19/2021, 02/26/2021 PHQ-2 (Physician [place]) 11/14/2024 04/18/2024 DTaP, Tdap and Td Vaccines [...] Procedure Name Priority Date/Time Associated Diagnosis Comments CBC W/DIFF AUTOMATED Routine 04/04/2025 8:20 AM CDT Leukocytosis, unspecified type from Last 3 Months Results * (ABNORMAL) CBC W/DIFF AUTOMATED (04/04/2025 8:20 AM CDT) WBC 12.02(H) 4.5 - 11.0 x10'3/uL 04/04/2025 8:32 AM CDT [facility] RBC 5.77 4.70 - 6.10 x10'6/uL 04/04/2025 8:32 AM CDT [facility] HGB 17.5 14.0 - 18.0 G/DL 04/04/2025 8:32 AM CDT [facility] HCT 52.1 43.0 - 54.0 % 04/04/2025 8:32 AM CDT [facility] MCV 90.3 80.0 - 94.0 FL 04/04/2025 8:32 AM CDT [facility] MCH 30.3 27.0 - 31.0 PG 04/04/2025 8:32 AM CDT [facility] MCHC 33.6 32.0 - 36.0 G/DL 04/04/2025 8:32 AM CDT [facility] RDW 13.3 11.5 - 14.5 % 04/04/2025 8:32 AM CDT [facility] PLT 297 130 - 400 x10'3/uL 04/04/2025 8:32 AM CDT [facility] MPV 8.8(L) 9.3 - 12.2 FL 04/04/2025 8:32 AM CDT [facility] DIFFERENTIAL TYPE AUTOMATED DIFFERENTIAL 04/04/2025 8:32 AM CDT [facility] NEUTROPHILS % 67.3 % 04/04/2025 8:32 AM CDT [facility] LYMPHOCYTES % 24.9 % 04/04/2025 8:32 AM CDT [facility] MONOCYTES % 5.8 % 04/04/2025 8:32 AM CDT [facility] EOSINOPHILS 1.2 % 04/04/2025 8:32 AM CDT [facility] BASOPHILS 0.5 % 04/04/2025 8:32 AM CDT [facility] IMMATURE GRANS % 0.3 % 04/04/20 8:32 AM CDT [facility] ABS. NEUTROPHILS 8.09(H) 1.80 - 7.70 x10'3/uL 04/04/2025 8:32 AM CDT [facility] ABS. LYMPHOCYTES 2.99 1.00 - 4.80 x10'3/uL 04/04/2025 8:32 AM CDT [facility] ABS. MONOCYTES 0.70 0.30 - 0.82 x10'3/uL 04/04/2025 8:32 AM CDT [facility] ABS. EOSINOPHILS 0.14 0.04 - 0.54 x10'3/uL 04/04/2025 8:32 AM CDT [facility] ABS. BASOPHILS 0.06 0.01 - 0.08 x10'3/uL 04/04/2025 8:32 AM CDT [facility] ABS. IMMATURE GRANULOCYTES 0.04 0.00 - 0.49 x10'3/uL 04/04/2025 8:32 AM CDT [facility] 04/04/2025 8:20 AM CDT us [facility] Final Result [facility] [address] [place] [address], from [place] [address] [place] [address] [place] [address] Care Teams Monitoring Analyst Relationship Specialty Start Date End Date Otilio Rockwell MD [address] [facility]. [facility] [address] [place] [address] PCP - General CARDIOVASCULAR DISEASE 12/08/24 Otilio Rockwell MD [address] [facility]. [address] [place] [address] [place] Operations Supervisor CARDIOVASCULAR DISEASE 04/14/16
[2025-05-23 07:40] LABS: Creatine Kinase 301 U/L (55-170)
== END 2025-05-23 06:44 | disposition home or self-care (01) ==
LOC: ANHLAB 06:44
PROVIDERS: PCP Emergency Medicine; Visit Provider Emergency Medicine
DX: R74.8 Abnormal levels of other serum enzymes (principal)
CPT/HCPCS: 36415; 82550